=== PATIENT | female | born 1975 | race Caucasian/White ===

== ENCOUNTER 2020-07-17 20:38 | Emergency (ER) | payer OTHER ==
[~2020-07-17] VITALS: Ht 152.4 cm; Wt 72.7 kg
[2020-07-17 20:43] VITALS: PULSE 95; TEMP 98.4
[2020-07-17 21:17] VITALS: BP 154/99
== END 2020-07-17 21:36 | disposition home or self-care (01) ==
LOC: COL.ER 20:38
DX: S93.601A Unspecified sprain of right foot, initial encounter (principal); W00.0XXA Fall on same level due to ice and snow, initial encounter